=== PATIENT | male | born 1935 ===

== ENCOUNTER 2023-02-14 09:26 | Day surgery (SDC) | payer MEDICARE, SELFPAY ==
--- NOTE | ~2023-02-14 | FL_ITS ---
EXAMINATION: XR LUMBAR PUNCTURE CLINICAL INFORMATION: Peripheral neuropathy COMPARISON: None available. TECHNIQUE/FINDINGS: Procedure and risks and benefits including bleeding, infection and headache were discussed with the patient and his son and informed consent was obtained. The patient was positioned in the prone position. The back was prepped and draped in the usual sterile fashion. The skin and soft tissues were anesthetized with 1% lidocaine plain. Using fluoroscopic guidance and a 22-gauge spinal needle, interlaminar access to the spinal canal at the L1-L2 level was obtained. Opening pressure was not elevated measuring 11 cm of water. 8 mL of clear CSF fluid was removed. FLUOROSCOPY TIME: 0.2 minutes DOSE AREA PRODUCT: 2.6 winter per centimeter squared. Total dose 14.5 mgy. 1 saved fluoroscopic image FL/FL guided lumbar puncture LP IMPRESSION: Fluoroscopy-guided lumbar puncture.
[2023-02-14 09:57] VITALS: BMI 27.5
[2023-02-14 10:25] LABS: MANUAL DIFF FLAG NO
[2023-02-14 10:28] LABS: Basophils Percent Auto 0.5 % (0-2); Eosinophils Absolute Auto 0.1 X10*3/uL (0.0-0.4); Eosinophils Percent Auto 0.9 % (0-4); Hematocrit 47.9 % (42.0-52.0); Hemoglobin 16.3 g/dl (14.0-18.0); Imm Gran Abs Auto 0.01 X10*3/uL (0.00-0.03); Imm Gran Pct Auto 0.2 % (0.0-0.4); Lymphocytes Absolute Auto 1.6 X10*3/uL (1.2-4.9); Lymphocytes Percent Auto 23.3 % (20-40); Mean Corpuscular Hemoglobin 31.7 pg (27.0-33.0); Mean Corpuscular Volume 93.2 fL (80.0-98.0); Mean Platelet Volume 11.8 fL (9.4-12.4); Monocytes Absolute Auto 0.7 X10*3/uL (0.1-1.2); Monocytes Percent Auto 9.9 % (2-11); Neutrophils Absolute Auto 4.4 x10*3/uL (2.0-8.3); Neutrophils Percent Auto 65.2 % (45-73); Platelet Count 214 X10*3/uL (160-400); Red Blood Count 5.14 X10*6/uL (4.60-5.80); Red Cell Distribution Width 13.7 % (11.0-16.0); White Blood Count 6.7 X10*3/uL (4.8-10.8)
[2023-02-14 10:44] LABS: INTERNATIONAL NORM RATIO 1.2 (0.9-1.1); Prothrombin Time 14.3 SEC (10.0-13.1)
[2023-02-14 10:47] LABS: Partial Thromboplastin Time 30.5 SEC (26.0-36.4)
[2023-02-14 12:15] VITALS: BP 134/70; PULSE 60; RESP 16; TEMP 36.1; O2SAT 95
[2023-02-14 12:45] VITALS: BP 134/73; PULSE 61; RESP 16; O2SAT 95
[2023-02-14 13:15] VITALS: BP 130/72; PULSE 59; RESP 16; O2SAT 95
[2023-02-14 13:40] LABS: Glucose CSF 54 mg/dL; Total Protein CSF 108.9 mg/dL (15-45)
[2023-02-14 13:41] LABS: Appearance CSF HAZY; CSF Monos 35 %; CSF Tube # 1; Color CSF COLORLESS; Lymphocytes CSF 64 %; Neutrophils CSF 1 %; Red Blood Cell CSF 4 MM*3; White Blood Cell CSF 7 MM*3
[2023-02-14 13:42] LABS: Appearance CSF CLEAR; CSF Tube # 4; Color CSF COLORLESS; Lymphocytes CSF 100 %; Red Blood Cell CSF 0 MM*3; White Blood Cell CSF 1 MM*3
[2023-02-14 13:45] VITALS: BP 120/69; PULSE 63; RESP 14; O2SAT 95
[2023-02-14 13:58] LABS: CSF Appearance Clear, Colorless; CSF Tube # 2
[2023-02-14 14:15] VITALS: BP 128/73; PULSE 62; RESP 16; TEMP 36.1; O2SAT 96
[2023-02-18 20:18] LABS: Oligoclonal Banding Absent (Absent)
== END 2023-02-14 14:32 | disposition home or self-care (01) ==
PROVIDERS: Radiology Diagnostic Radiology; PCP Internal Medicine; Visit Provider Psychiatry & Neurology Neurology
PROC: 009U3ZZ Drainage of Spinal Canal, Percutaneous Approach (ICD-10-PCS; CPT 62270; principal; 2023-02-14 11:00)
DX: G62.9 Polyneuropathy, unspecified (principal); I48.91 Unspecified atrial fibrillation; I10 Essential (primary) hypertension; I63.9 Cerebral infarction, unspecified; I67.89 Other cerebrovascular disease; G30.9 Alzheimer's disease, unspecified; F01.50 Vascular dementia, unspecified severity, without behavioral disturbance, psychotic disturbance, mood disturbance, and anxiety; F41.8 Other specified anxiety disorders; R26.89 Other abnormalities of gait and mobility; E78.5 Hyperlipidemia, unspecified; G47.33 Obstructive sleep apnea (adult) (pediatric); Z79.01 Long term (current) use of anticoagulants; Z79.899 Other long term (current) drug therapy; Z95.0 Presence of cardiac pacemaker; M19.90 Unspecified osteoarthritis, unspecified site; Z98.890 Other specified postprocedural states
CPT/HCPCS: 36415; 62328; 82945; 83916; 84157; 85025; 85610; 85730; 87015; 87070; 87205; 89051